=== PATIENT | male | born 1935 | race Caucasian/White ===

== ENCOUNTER → 2016-09-02 | Emergency (ER) | payer OTHER ==
[~2016-09-02] MED LIST: LABETALOL IV ONE; NS 1,000 ML IV ONE; ZOFRAN IV ONE
--- NOTE | 2016-09-02 09:27 | PROVIDER DOCUMENTATION ---
HPI-Neurological Disorder - General Chief Complaint: Stroke-Like Symptoms Stated Complaint: stroke Time Seen by Provider: 09/02/16 09:20 Source: patient, EMS Allergies/Adverse Reactions: Patient Allergies Allergy/AdvReac Type Severity Reaction Status Date / Time cilostazol [From Pletal] AdvReac Intermediate NAUSEA/VOMI Verified 07/04/14 17: 49 TING zolpidem tartrate * AdvReac Intermediate double Verified 07/04/14 17:49 [From Ambien] vision Home Medications: Aspirin 81 mg PO DAILY 09/10/13 Doxazosin [Cardura] 4 mg PO DAILY 09/10/13 Fenofibrate 160 mg PO DAILY 09/10/13 LISINOpril [Prinivil] 10 mg PO DAILY 09/10/13 Levothyroxine [Synthroid] 25 microgm PO DAILY 09/10/13 Multivitamin [Multi Vitamin Daily] 1 each PO DAILY 09/10/13 Lily-3 Fatty Acids/Fish Oil [Fish Oil 1,000 mg Softgel] 1 each PO BID 09/10/13 Ranitidine [Zantac] 300 mg PO DAILY 09/10/13 - History of Present Illness-Neuro Nature of Presenting Problem: Pt is a 81 yom who came to the ED via EMS with a cc of stroke like symptoms. EMS stated that about 45 minutes ago the pt fell in his bathroom and his called to help get him off the floor. Pt reports on the way her he started having weakness in his left side. Pt reports it feels like the room is spinning. Pt has a hx of TIA. Severity: reports: mild Onset/Duration: reports: just prior to arrival Timing: reports: still present Context: reports: other (fell) Approximate time patient was last seen normal?: 09:00 Character of Altered Mental Status: reports: disoriented Any recent trauma/injury?: reports: none Character of Deficits: reports: new weakness, impaired speech New weakness or altered sensation location:: reports: LUE Cognitive Baseline: alert but confused Associated Symptoms: reports: weakness Similar Symptoms Previously?: No Recently seen or treated by another doctor?: No Review of Systems - Adult - REVIEW OF SYSTEMS - ADULT Constitutional: denies: chills, fever Eyes: reports: no symptoms reported Ears, Nose, Mouth & Throat: denies: nose pain, loose teeth Cardiovascular: reports: no symptoms reported Respiratory: reports: no symptoms reported Gastrointestinal: denies: nausea, vomiting Genitourinary: reports: no symptoms reported Musculoskeletal: reports: muscle weakness. denies: joint pain, muscle aches Integumentary: reports: no symptoms reported Neurological: reports: numbness, slurred speech. denies: dizziness/vertigo, seizure, syncope Psychiatric: reports: no symptoms reported Endocrine: reports: no symptoms reported Hematologic/Lymphatic: denies: low blood count, prolonged bleeding Allergic/Immunologic: reports: no symptoms reported All Other Systems: Reviewed and Negative Past History - Adult - PAST MEDICAL HISTORY-ADULT Review of Records: reports: Old Records Reviewed, Nursing Assessment Review Major Childhood Illnesses: reports: denies history Cardiovascular: reports: HTN, hyperlipidemia Respiratory: reports: denies history Gastrointestinal: reports: ulcer (STOMACH), other (HERNIA) Genitourinary: reports: prostate cancer Musculoskeletal: reports: denies history Neurological: reports: TIA Psychiatric: reports: depression Endocrine/Immune: reports: denies history Other Conditions: reports: other cancer ("ALL OVER"), 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) - PRIOR SURGERIES/PROCEDURES Surgical/Procedure History: reports: reviewed, not pertinent - PRIOR HOSPITALIZATIONS Prior Hospitalizations: reports: none - IMMUNIZATION STATUS Childhood Immunizations: See Nurse Assessment Flu Vaccine: See Nurse Assessment - FAMILY HISTORY Family History: reviewed, not pertinent Physical Exam- Neurological - Physical Exam-Neuro General Appearance: mild distress HENMT: normocephalic/atraumatic, normal ENT inspection, TMs normal, pharynx normal Head Injury: no evidence of injury Neck: non-tender, full range of motion, supple, normal inspection Respiratory: chest non-tender, lungs clear, normal breath sounds, no pleuratic chest pain, no respiratory distress, no accessory muscle use Cardiovascular: normal peripheral pulses, regular rate, rhythm, no edema, no gallop, no JVD, no murmur Abdominal Exam: normal bowel sounds, non tender, soft, no organomegaly, no pulsatile mass Lymphatic: no adenopathy Extremity: pelvis stable, other (weakness in the left side) 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 Exam: normal hearing, PERRL, abnormal speech, facial weakness Coordination/Gait: normal finger to nose, normal gait, negative Romberg's sign Motor/Sensory: pronator drift (L), weak motor strength LUE Neurologic: abnormal gait, motor weakness Integumentary: normal color, normal turgor, warm/dry Psych/Mental Status: AL, normal mood/affect, normal thought content, normal thought process, oriented x 3 Progress - PLAN OF CARE/RESULTS Progress/Plan/Lab Results: Orders Category Date Time Status Cardiac Monitoring DIRECTED Care 09/02/16 09:22 Active Finger Stick Blood Sugar (ED) DIRECTED Care 09/02/16 09:22 Active Oxygen Therapy- ED Nursing DIRECTED Care 09/02/16 09:22 Active Saline Loc NOW Care 09/02/16 09:22 Active CHEST-PORTABLE [RAD] Stat Exams 09/02/16 09:23 Taken HEAD W/O CONTRAST [CT] Stat Exams 09/02/16 09:21 Taken ALCOHOL BLOOD Stat Lab 09/02/16 09:22 Uncollected CBC WITH ELECTRONIC DIFF [HEME] Stat Lab 09/02/16 09:22 Uncollected COMPREHENSIVE METABOLIC PANEL [CHEM] Stat Lab 09/02/16 09:22 Uncollected MAGNESIUM [CHEM] Stat Lab 09/02/16 09:22 Uncollected PROTIME WITH INR [COAG] Stat Lab 09/02/16 09:22 Uncollected PTT [COAG] Stat Lab 09/02/16 09:22 Uncollected TROPONIN T Stat Lab 09/02/16 09:22 Uncollected URINALYSIS W/POSS RFLX CULT [URINALYSIS] Stat Lab 09/02/16 09:22 Uncollected URINE DRUG SCREEN Stat Lab 09/02/16 09:22 Uncollected 0.9% Sodium Chloride Inj [Ns] 1,000 ml Med 09/02/16 09:22 Active IV 150 mls/hr Pulse Oximetry Stat Oth 09/02/16 09:22 Active EKG [EKG] Stat Ther 09/02/16 09:22 Ordered - CT/MRI 1 CT Study: Head CT Results: 6cm right intraparenchmal hem - CONSULTS/PCP/HOSPITALIST Notification #1 *Consult/PCP/Hospitalist*: Dr. Moore Time Discussed: 09:43 Reason/Comments: [facility] transportation is fine Departure - Departure Time of Disposition Order: 09:44 DIAGNOSIS: Stroke Qualifiers: CVA mechanism: unspecified Qualified Code(s): I63.9 - Cerebral infarction, unspecified Disposition: [facility] 02 Certified Medical Emergency: Emergent Condition: Serious - Critical Care Note Total Time (mins): 30 Critical Care Statement: This patient required my direct personal management to treat or rule out processes, the absence of which, could potentiallly result in sudden, clinically significant life or limb threatening deterioration. Attestation - Scribe Verification/Attestation Scribe:: Caty Jacobson Acting as Scribe for:: Carine Da Silva Scribe documention review:: This chart was documented by a scribe and accurately reflects the service the provider performed and the decisions made by the provider.
[2016-09-02 09:55] VITALS: BP 147/92
[2016-09-02 09:58] LABS: MANUAL DIFF NEEDED? NO
[2016-09-02 10:11] LABS: BASO% 0.3 % (0.0-0.8); EOS# 0.18 X1000 (0.0-0.7); EOS% 2.4 % (0.0-10.0); HEMATOCRIT 43.4 % (42.0-52.0); HEMOGLOBIN 15.1 g/dL (14.0-18.0); IMM GRAN# 0.04 X1000 (0.0-0.04); IMM GRAN% 0.5 % (0.0-0.5); LYMPH# 3.05 X1000 (1.2-3.4); LYMPH% 41.2 % (20.5-51.1); MCH 31.1 PG (27-31); MCHC 34.8 g/dL (33-37); MCV 89.5 FL (81-99); MONO% 6.7 % (1.7-9.3); MPV 9.5 FL (7.4-10.4); NEUT% 48.9 % (42.2-75.2); PLT 205 X1000 (130-400); RBC 4.85 XMIL (4.7-6.1)
[2016-09-02 10:16] LABS: INR 1.11; PROTIME 11.8 Seconds (9.2-11.7); PTT 25.9 Seconds (22.0-36.0)
--- NOTE | 2016-09-02 10:19 | Diag Imaging Result Document ---
PROCEDURE NAME: CHEST-PORTABLE - 09/02/2016 PORTABLE CHEST AP: TIME: 0933 hours. FINDINGS: The inspiration is suboptimal. There has been no significant change since 09/12/2013. IMPRESSION: No acute disease.
[2016-09-02 10:23] LABS: AGAP 17; ALBUMIN 4.9 g/dL (3.5-5.0); ALKALINE PHOSPHATASE 42 U/L (32-122); BUN 16 mg/dL (8-22); CALCIUM 9.9 mg/dL (8.8-10.2); CHLORIDE 98 mmol/L (98-107); COSMO 279; GOT 29 U/L (10-34); GPT 26 U/L (10-44); MAGNESIUM 1.6 mg/dL (1.5-2.7); POTASSIUM 3.9 mmol/L (3.5-5.1); SODIUM 139 mmol/L (136-145); TCO2 24 mmol/L (25-35); TOTAL PROTEIN 7.3 g/dL (6.3-8.3)
--- NOTE | 2016-09-02 10:24 | Diag Imaging Result Document ---
PROCEDURE NAME: HEAD W/O CONTRAST - 09/02/[address] SCAN OF THE BRAIN: COMPARISON: 09/10/2013. INDICATION: Possible stroke. FINDINGS: There is a large right intraparenchymal hemorrhage in the right frontal and parietal lobes measuring 5.7 cm. The findings may be secondary to hypertensive hemorrhage, hemorrhagic neoplasm, or amyloid angiopathy. There is no midline shift or mass effect. No hydrocephalus. There is diffuse cerebral atrophy and hypodensity within the deep white matter nonspecific in appearance but likely related to microvascular disease. IMPRESSION: New large right intraparenchymal hemorrhage. The findings were verbally discussed with Dr. Da Silva at 9:35 a.m..
--- NOTE | 2016-09-02 13:21 | EKG Report ---
Test Performed on : 09/02/2016 09:41:56 AM Test Reason : AMS Blood Pressure : / mmHG Vent. Rate : 061 BPM Atrial Rate : 061 BPM P-R Int : 160 ms QRS Dur : 112 ms QT Int : 470 ms P-R-T Axes : 002 060 -09 degrees QTc Int : 473 ms Normal sinus rhythm. Incomplete right bundle branch block Abnormal QRS-T angle, consider primary T wave abnormality Abnormal ECG When compared with ECG of 10-SEP-2013 23:05, (Unconfirmed) Vent. rate has decreased BY 81 BPM Questionable change in QRS duration Minimal criteria for Anterior infarct are no longer present Unconfirmed Result
== END | disposition short-term general hospital (02) ==
LOC: EDBD → EDUNIT# 09:14 → ED 09:20
DX: I63.9 Cerebral infarction, unspecified (principal); R47.81 Slurred speech; M62.81 Muscle weakness (generalized); R20.0 Anesthesia of skin; I10 Essential (primary) hypertension; E78.5 Hyperlipidemia, unspecified; Z85.46 Personal history of malignant neoplasm of prostate; Z86.73 Personal history of transient ischemic attack (TIA), and cerebral infarction without residual deficits; Z79.899 Other long term (current) drug therapy; W19.XXXA Unspecified fall, initial encounter; Z79.82 Long term (current) use of aspirin; F32.9 Major depressive disorder, single episode, unspecified
CPT/HCPCS: 70450; 71010; 80053; 83735; 84484; 85025; 85610; 85730; 93005; G0480; J7030